=== PATIENT | male | born 1990 | race Caucasian/White ===

== ENCOUNTER 2025-01-09 17:19 | Emergency (ER) | payer BC, SELFPAY ==
--- NOTE | ~2025-01-09 | XR_ITS ---
HISTORY: left rib pain- pain with inspiration r/o spontaneous pneumothorax COMPARISON: None TECHNIQUE: 3 views of the left ribs were performed along with a PA examination of the chest FINDINGS: No acute displaced fracture is appreciated. Bone mineralization is age-appropriate. Cardiomediastinal silhouette is unremarkable. The lungs are clear and fully inflated. IMPRESSION: No acute displaced left-sided rib fracture. The lungs are clear and fully inflated Reviewed, dictated and finalized at location A.
--- NOTE | 2025-01-09 17:22 | ED_ITS ---
HPI - Back Pain/Injury General Chief Complaint: Back Pain/Injury Stated Complaint: Back Pain/dizzy Time Seen by Provider: 01/09/25 17:21 Source: patient Mode of arrival: ambulatory Limitations: no limitations History of Present Illness HPI Narrative: Kang is a 34-year-old male patient presenting to the clinic today with complaints of left-sided flank pain that is radiating into the right left side of the lateral ribs today. Denies any known injury but has been recently moving heavy objects. Denies any chest pain but does have increase in pain when he takes a deep breath over the left flank/ribs. Rates pain as 6/10 currently. Pain is constant, dull, ache. Does report today he started to have some lightheadedness. States he felt anxious. He reports lightheadedness has improved however he feels weak at this time. Significant other said he was cold and clammy earlier today. No URI symptoms. Denies any fevers, chills, body aches. Does report Related Data Home Medications ?Medication ?Instructions ?Recorded ?Confirmed ?Last Taken ?Type escitalopram oxalate 20 mg tablet mg 01/09/25 Unknown History Allergies Allergy/AdvReac Type Severity Reaction Status Date / Time Penicillins Allergy HIVES Verified 01/09/25 17:37 [facility] At the time of my signature, I reviewed and agree with the nursing past medical, surgical, social, and family history. There is no relevant family history pertinent to the patient complaint. Exam Narrative: General: Well-developed, well nourished, in no apparent distress Head: Normocephalic, atraumatic Eyes: Pupils equally round and reactive to light bilaterally, EOM intact, sclera and conjunctive clear, no discharge, lids normal Ears: TMs intact and clear, ear canals clear, no drainage, grossly hearing normal. Nose: Nares patent, no discharge, no inflammation, no sinus tenderness. Mouth: Oropharynx without lesions or masses, good dentition, MMM. Tongue midline, even rise and fall of uvula Neck: Supple, trachea midline, no enlargement of anterior or posterior cervical nodes, no thyroid masses or goiter palpable. Cardio: Regular rate and rhythm, s1 and s2 normal, no murmur appreciated. Resp: Clear to auscultation bilaterally anteriorly and posteriorly, no rhonchi, rales, wheezing or rubs Musculoskeletal: No deformity, tender to palpation over the the left posterior flank/ribs and into the left ribs, grossly normal range of motion, muscle strength strong and equal, peripheral pulse strong, no edema, no cyanosis, normal gait and station Neuro: Alert and oriented x4 with normal speech, no focal deficits, cranial nerves I through XII intact, muscle strength 5 out of 5, sensation intact bilaterally Course Course Emergency Course: Portions of this record may have been created with voice recognition software. Level of Care: Express Care Visit Vital Signs Vital signs: Vital Signs Temperature 36.4 C L 01/09/25 17:31 Pulse Rate 98 01/09/25 17:31 Respiratory Rate 16 01/09/25 17:31 Blood Pressure 157/96 H 01/09/25 17:31 Pulse Oximetry 100 01/09/25 17:31 Temperature 36.4 C L 01/09/25 17:31 Pulse Rate 98 01/09/25 17:31 Respiratory Rate 16 01/09/25 17:31 Blood Pressure 157/96 H 01/09/25 17:31 Pulse Oximetry 100 01/09/25 17:31 Vital signs reviewed MDM - Back Pain/Injury MDM Narrative Medical decision making narrative: At the time of visit patient is resting comfortably on the exam table. Patient appears to be nontoxic. At the time of visit patient is resting comfortably on the exam table. Patient appears to be nontoxic. Complaints of left-sided flank pain that is radiating into the right left side of the lateral ribs. Denies any known injury but has been recently moving heavy objects. Pain is constant, dull, ache. Denies any chest pain but does have increase in pain when he takes a deep breath over the left flank/ribs. Rates pain as 6/10 currently. Does report today he started to have some lightheadedness. States he fell anxious. He reports lightheadedness has improved however he feels weak at this time. Significant other said he was cold and clammy earlier today. No URI symptoms. Denies any fevers, chills, body aches. EKG, urinalysis, and left ribs with chest x-ray ordered. EKG: EKG shows normal sinus rhythm with heart rate of a 7 beats per minute without ST elevation, depression, or T-wave inversion. No comparison EKG a vailable. Labs: Urinalysis shows 1+ blood. No sign of infection. Diagnostics: X-ray of left ribs with chest performed. X-rays negative for any sign of fracture or malalignment of the left ribs-no acute cardiopulmonary process. Plan: I suspect as the patient has acute left flank pain/left rib pain probable muscular in nature. Supportive measures were discussed with the patient and they voiced understanding discharge instructions and agrees to treatment plan. Return precautions reviewed Differential Diagnosis Differential diagnosis: Likely lumbar radiculopathy, renal colic, pyelonephritis, thoracic back pain and other (Left rib pain, left rib contusion, left chest wall muscle strain, pleuritic chest pain, spontaneous pneumo,) Lab Data Labs: Lab Results 01/09/25 Range/Units 18:20 POC Urine Color Yellow POC Urine Clarity Clear POC Urine pH 5.5 POC Ur Specif [place] 1.005 POC Urine Protein Negative (Negative) POC Ur Glucose (UA) Negative (Negative) POC Urine Ketones Negative (Negative) POC Urine Blood 1+ (Negative) POC Urine Nitrite Negative (Negative) POC Urine Bilirubin Negative (Negative) POC Urine Urobilinogen 0.2 POC U Leukocyte Esteras Negative (Negative) Imaging Data Radiologist's impression: ITS Impressions Ribs w/Chest X-Ray 01/09/25 20:18 IMPRESSION: No acute displaced left-sided rib fracture. The lungs are clear and fully inflated ECG Data EKG #1: Attestation: I personally reviewed and interpreted this ECG as follows: ECG completion date: 01/09/25 ECG completion time: 17:58 Prior ECG tracings: not available for review Interpretation: EKG shows normal sinus rhythm with heart rate of 87 beats per minute without ST elevation, depression, or T-wave inversion. TN intervals 141 milliseconds, QRS durations 102 milliseconds, QT-QTC is 351-396 milliseconds, P-R-T axis is 41 42 20 Discharge Plan Discharge Clinical Impression: Acute left flank pain, Acute chest wall pain Patient Disposition: Home Condition: Stable Instructions: Antibiotic Form, Flank Pain (ED), Chest Wall Pain (ED) Additional Instructions: EKG is reassuring in the clinic today. Urinalysis shows 1+ blood. X-rays negative for any sign of pneumothorax or acute cardiopulmonary process. Take any prescription medication only as prescribed-naproxen and Flexeril Be mindful of sedation precautions given to you if taking a muscle relaxer. May use heat or ice to the affected area Consider massage or chiropractor adjustment if this was discussed with provider May use blue emu, lidocaine patches, or asper cream to affected area- do not apply heat or ice directly over cream- can cause burn. Complete appropriate back stretching exercises. Follow up with your PCP in 3-5 days if symptom persist. Patient Language: Vincentian Prescriptions: New naproxen 500 mg tablet 500 mg PO BID PRN (Reason: pain) 7 Days Qty: 14 0RF cyclobenzaprine 10 mg tablet 10 mg PO Q8H PRN (Reason: muscle spasm) 7 Days Qty: 21 0RF No Action escitalopram oxalate 20 mg tablet Follow-up/Referrals: UNKNOWN,DOCTOR [Non-Staff] - Time of Disposition: 20:25 Quality NIHSS Nursing Documentation ED NIHSS nursing documentation: reviewed/agree
[2025-01-09 17:31] VITALS: BP 157/96; PULSE 98; RESP 16; TEMP 36.4; O2SAT 100
--- NOTE | 2025-01-09 17:50 | ECG_ITS ---
Test Date: 2025-01-09 17:58:49 Measurements Intervals [place] Rate: 87 P: 41 MD: 141 QRS: 42 QRSD: 102 T: 20 QT: 351 QTc: 424 Interpretive Statements SINUS RHYTHM MINIMAL Q WAVES- INFERIOR LEADS BASELINE ARTIFACT- I, III, AVR, AVL BORDERLINE ECG No previous ECG available for comparison Electronically Signed On 01-09-2025 18:15:31 CDT by Alverto Donovan D.O.
[2025-01-09 18:23] LABS: EDUAAPPEAR Clear; EDUABILI Negative (Negative); EDUABLOOD 1+ (Negative); EDUACOLOR1 Yellow; EDUAGLUCOSE Negative (Negative); EDUAKETONE Negative (Negative); EDUALEUKO Negative (Negative); EDUANITRATE Negative (Negative); EDUAPH 5.5; EDUAPROTEIN Negative (Negative); EDUASPGRAVITY 1.005; EDUAUROBILI 0.2
== END 2025-01-09 20:30 | disposition home or self-care (01) ==
PROVIDERS: Emergency Provider Nurse Practitioner Family
DX: R10.9 Unspecified abdominal pain (principal); R07.89 Other chest pain
CPT/HCPCS: 71101; 81003; 93005; 99213; G0463